=== PATIENT | female | born 1940 | race Caucasian/White ===

== ENCOUNTER → 2018-01-22 | Outpatient (CLI) | payer OTHER, MEDICARE ==
[~2018-01-22] MED LIST: REGADENOSON 0.4 MG/5 ML SYR IV ONE
--- NOTE | 2018-01-23 13:01 | Cardiology Report ---
DATE OF STUDY: January 22, 2018 NUCLEAR STRESS TEST INDICATIONS: Syncope. PROCEDURE TITLE: Rest/stress single isotope SPECT imaging with pharmacologic stress and gated SPECT imaging. PROCEDURE: Pharmacologic stress testing was performed with regadenoson per protocol. The heart rate was 62 beats per minute at rest and increased to 92 beats per minute during the regadenoson infusion, which is 65% of the maximum predicted heart rate. The rest blood pressure was 137/82 mmHg and decreased to 121/75 mmHg, which is a normal response. The patient did not develop any significant symptoms. The resting electrocardiogram demonstrated normal sinus rhythm. There were no ST segment changes consistent with myocardial ischemia. Myocardial perfusion imaging was performed at rest following the injection of 10.5 millicuries of tetrofosmin. At peak pharmacologic effect, the patient was injected with 31 millicuries of tetrofosmin. Gated post-stress tomographic imaging was performed. The overall quality of the study is fair. The left ventricular cavity is noted to be normal size on the rest and stress studies. SPECT images demonstrate homogeneous tracer distribution throughout the myocardium. Gated SPECT imaging reveals normal myocardial thickening and wall motion. The left ventricular ejection fraction was calculated to be 66%. IMPRESSION: Myocardial perfusion imaging is normal. Overall left ventricular systolic function was normal without regional wall motion abnormalities. Job#: [id number]
== END ==
LOC: NM 11:23
PROVIDERS: ATTEND Internal Medicine
DX: I51.9 Heart disease, unspecified (principal); I35.1 Nonrheumatic aortic (valve) insufficiency
CPT/HCPCS: 78452; A9502; J2785; 93017